=== PATIENT | male | born 1925 | race Caucasian/White ===

== ENCOUNTER 2017-05-31 16:52 | Emergency (ER) | payer OTHER ==
[~2017-05-31] VITALS: Ht 177.8 cm; Wt 85.9 kg
[~2017-05-31 16:52] MED LIST: BENICAR40 MG PO; CARDIZEM LA360 MG PO; KLONOPIN0.5 M1 PO; ONE DAILY FOR1 EAC2 PO; ZYPREXA5 MG PO
[2017-05-31 19:31] LABS: HEMATOCRIT 42.4 % (38.0-50.0); MCH 30.2 PG (29.0-34.0); MCHC 34.2 G/DL (30.0-36.0); MCV 88.3 FL (86-99); MEAN PLAT.VOLUME 8.4 uM^3 (9.0-12.4); PLATELET COUNT 264 K/uL (156-360); RBC DIS.WIDTH-SD 42.1 % (39-53); WHITE BLOOD COUNT 10.1 K/uL (4.1-10.2)
[2017-05-31 19:43] LABS: CHLORIDE 99 mEq/L (99-109); POTASSIUM 4.6 mEq/L (3.7-5.4); SODIUM 131 mEq/L (136-147)
[2017-05-31 19:45] LABS: GLUCOSE 105 mg/dL (70-99)
[2017-05-31 19:46] LABS: ANION GAP 8 MEQ/L (2-14)
[2017-05-31 19:49] LABS: GFR ESTIMATE (CALCULATED) 43 mL/min/; UREA NITROGEN (BUN) 25 mg/dL (9-23)
[2017-05-31 19:54] LABS: TROP-I INTERPRETATION NEGATIVE; TROPONIN-I < 0.01 ng/mL (0.0-0.30)
[2017-05-31 20:39] LABS: ADD MIUA? NO; BILIRUBIN NEGATIVE; BLOOD NEGATIVE; COLOR STRAW ((YELLOW)); GLUCOSE (STRIP) NEGATIVE; KETONES NEGATIVE; LEUKOCYTES NEGATIVE; NITRITE NEGATIVE; PROTEIN (STRIP) 30; SPECIFIC GRAVITY 1.005 (1.000-1.030); UCUL ADDED? NO; UROBILINOGEN 0.2 MG/DL (0.2-1.0)
[2017-05-31 20:43] LABS: INFLUENZA A VIRAL ANTIGEN NEGATIVE; INFLUENZA B VIRAL ANTIGEN NEGATIVE
[2017-05-31 22:40] VITALS: BP 197/77
== END 2017-05-31 22:58 | disposition home or self-care (01) ==
LOC: EME 16:52
PROVIDERS: Emergency Medicine; Physician Assistant Medical
DX: R53.1 Weakness (principal); R25.1 Tremor, unspecified; I10 Essential (primary) hypertension; Z85.46 Personal history of malignant neoplasm of prostate; Z87.442 Personal history of urinary calculi; Z87.891 Personal history of nicotine dependence
CPT/HCPCS: 71020; 80048; 81003; 83735; 84484; 85027; 87502; 93005; 99281; 99284; J7030